=== PATIENT | female | born 1930 | race Caucasian/White ===

== ENCOUNTER → 2017-05-22 | Outpatient (CLI) | payer OTHER ==
[~2017-05-22] MED LIST: ACETAMINOPHEN PO; ALPRAZOLAM PO; ASPIRIN PO; ASPIRIN81 M2 PO; FLEXERIL PO; HYDROCODON-ACE1 EAC7 PO; IMDUR PO; IMDUR-ER30 M2 PO; ISORDIL PO; KEFLEX500 MG PO; LIPITOR40 MG PO; LOPRESSOR PO; METAMUCIL197.2 GM PO; METOPROLOL SUCC25 MG PO; NITROFURANTOIN100 M3 PO; NITROGYLCERIN SUBLINGUAL; PANTOPRAZOLE SO40 MG PO; PLAVIX PO; PRAVACHOL80 MG PO; PREDNISONE PO; PRILOSEC PO; TOPROL XL PO; ULTRAM PO; XANAX0.5 M1 PO; ZOFRAN PO; [UNRECOGNIZED DRUG - CODE]
--- NOTE | ~2017-05-22 | EKG ---
PATIENT: EFFIE URIBE UNIT #: [id number] Ventricular Rate: 68 BPM Atrial Rate: 68 BPM P-R Interval: 144 ms QRS Duration: 82 ms Q-T Interval: 390 ms QTC Calculation(Bezet): 414 ms P [place]: 77 degrees Calculated R [place]: 85 degrees Calculated T [place]: 80 degrees Diagnosis Line: Normal sinus rhythm Diagnosis Line: Normal ECG Diagnosis Line: When compared with ECG of 13-DEC-2013 16:51, Diagnosis Line: No significant change was found Diagnosis Line: Confirmed by CONSTANCE HORAN MD ([id number]) on 05/25/2017 Diagnosis Line: 1:48:58 PM INTERPRETING MD: MARLINE GONSALES
[2017-05-22 12:49] LABS: HEMATOCRIT 35.5 % (35.0-45.0); HEMOGLOBIN 12.2 gm/dL (12.0-16.0); MEAN CELL VOLUME 88.8 FL (83-96); MEAN CORPUSCULAR HEMOGLOBIN 30.5 PG (28-34); MEAN CORPUSCULAR HGB CONC 34.3 g/dL (30-36); MEAN PLATELET VOLUME 7.9 FL (6.5-11.5); RED BLOOD COUNT 3.99 X10e (3.90-5.30); RED CELL DISTRIBUTION WIDTH 13.8 % (11.0-15.5); WHITE BLOOD COUNT 6.8 X10e3 (4.0-10.5)
[2017-05-22 13:22] LABS: ALBUMIN SERUM 3.6 g/dL (3.5-5.0); BILIRUBIN,TOTAL 0.7 mg/dL (0.2-2.0); CALCIUM SERUM 8.7 mg/dL (8.4-10.2); CREATININE SERUM 1.2 mg/dL (0.6-1.4); GLOM FILT RATE Estimated 40.6 mL/min (>60); POTASSIUM 4.7 mmol/L (3.5-5.1); PROTEIN TOTAL SERUM 5.9 g/dL (6.0-8.3)
== END | disposition home or self-care (01) ==
LOC: CAMB 11:36
PROVIDERS: Specialist
DX: Z01.818 Encounter for other preprocedural examination (principal)
CPT/HCPCS: 36415; 80053; 85027; 93005

== ENCOUNTER → 2017-05-26 | Day surgery (SDC) | payer OTHER ==
--- NOTE | ~2017-05-26 | OR ---
Unit #: [id number] #: [id number] Patient: EFFIE URIBE [id number] [facility] [address] [place], [place] [address] [id number] O MR#: [id number] NAME: EFFIE URIBE ROOM: Date of Procedure: 05/26/2017 Admission Date: 05/26/2017 Surgeon: Andriy Naidu M.D. : 1930 Attending Physician: Andriy Naidu M.D. Primary Care Physician: Andriy Mcallister D.O. OPERATIVE REPORT PREOPERATIVE DIAGNOSIS Severe rectal pain with perianal dermatitis. POSTOPERATIVE DIAGNOSES Extrasphincteric wdfyslk-[id number] and anal stenosis. PROCEDURES PERFORMED Rectal examination under anesthesia, fistulotomy, dilatation of anal stenosis with excision of long-standing cicatrix. ANESTHESIA General endotracheal anesthesia. ESTIMATED BLOOD LOSS 20 mL. INDICATIONS FOR PROCEDURE Ms. Uribe is an 87-year-old female, who has been having severe rectal pain at home for some time. She was now complaining of burning and itching that was uncontrolled and they brought her to the office on Thursday. On Thursday, she had perianal dermatitis and such severe rectal discomfort that she could not be examined. She was started on dibucaine cream and scheduled for an examination under anesthesia today. I discussed the possible findings with the family and told them after diagnosis was made by examination that we would proceed with the appropriate surgical procedure. DESCRIPTION OF PROCEDURE The patient was admitted to [facility], positively identified, transported to the operating room, and after induction of general endotracheal anesthesia, she was placed in lithotomy position using candy-cane stirrups. With the use of the dibucaine cream over the last 3 days, her perianal dermatitis had cleared. As I tried to do a rectal examination, she had a very tight anal stenosis that the patient states has been present since her hemorrhoidal surgery 40 years ago. She has always complained of straining at stool. She also had an external opening and I passed a probe through the opening and it passed into the distal rectum superficially, consistent with a [id number]. A groove dilator was placed and then a fistulotomy was performed. The granulation tissue was curetted and then cauterized. Posteriorly, she had a very thick band of scar tissue, a cicatrix, that was 4 to 5 mm thick. This cicatrix was excised, releasing the stenosis. After the cicatrix was Unit #: [id number] #: [id number] Patient: EFFIE URIBE excised, she had a normal anal aperture, for which I could easily pass 2 fingers. We ensured hemostasis. A perianal block with 0.5% Marcaine with epinephrine was performed. I irrigated the surgical anal canal. There was good hemostasis. 2% lidocaine jelly and Gelfoam were placed followed by peripad and fishnet pants. Sponges and needle counts were correct x3. The patient tolerated the procedure well and was transferred to recovery in stable condition. Findings and postoperative instructions were discussed with her family. Dictated by... Arcenio Serna/nini TD: 05/27/2017 06:33 JOB #: [id number] OPERATIVE REPORT Page 1 of 1 X Adnriy Naidu MD X PROCEDURE OPERATIVE NOTE
== END | disposition home or self-care (01) ==
LOC: CSUR 08:35
DX: K60.3 Anal fistula (principal); L85.9 Epidermal thickening, unspecified; K62.89 Other specified diseases of anus and rectum; K62.4 Stenosis of anus and rectum; I10 Essential (primary) hypertension; E78.5 Hyperlipidemia, unspecified; I25.10 Atherosclerotic heart disease of native coronary artery without angina pectoris; I25.2 Old myocardial infarction; M19.90 Unspecified osteoarthritis, unspecified site; Z86.718 Personal history of other venous thrombosis and embolism; Z87.891 Personal history of nicotine dependence; Z88.1 Allergy status to other antibiotic agents; Z88.2 Allergy status to sulfonamides; Z88.5 Allergy status to narcotic agent; Z79.82 Long term (current) use of aspirin; Z79.899 Other long term (current) drug therapy; Z90.49 Acquired absence of other specified parts of digestive tract; Z90.710 Acquired absence of both cervix and uterus; Z95.1 Presence of aortocoronary bypass graft
CPT/HCPCS: 88305; J3010